=== PATIENT | male | born 1990 | race Two or more races ===

== ENCOUNTER 2016-03-17 08:38 | Inpatient (IN) | payer OTHER ==
[2016-03-17 09:03] VITALS: BMI 17.8
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
[2016-03-17] MEDS ORDERED: ACETAMINOPHEN 325 MG TABLET (FP) PO PRN (11:55)
[2016-03-17] MEDS ORDERED: diphenhydrAMINE HCL 50 MG CAPSULE PO PRN (11:55)
[2016-03-17] MEDS ORDERED: LOPERAMIDE HCL 2 MG CAPSULE PO PRN (11:55)
[2016-03-17] MEDS ORDERED: NICOTINE POLACRILEX 2 MG GUM BUC PRN (11:55)
[2016-03-17] MEDS ORDERED: MENTHOL/PHENOL 1 EACH UD MM PRN (11:55)
[2016-03-17] MEDS ORDERED: MAGNESIUM CITRATE 300 ML BOTTLE PO PRN (11:55)
[2016-03-17] MEDS ORDERED: chlordiazePOXIDE HCL 25 MG CAPSULE PO PRN (11:55)
[2016-03-17] MEDS ORDERED: guaiFENesin/D-METHORPHAN HB 10 ML UNIT-DOSE CUPS PO PRN (11:55)
[2016-03-17] MEDS ORDERED: MAGNESIUM HYDROX 2400MG/30ML ORAL SUSPENSION 30 ML CUP PO PRN (11:55)
[2016-03-17] MEDS ORDERED: MAG HYDROX/AL HYDROX/SIMETH 30 ML UNIT-DOSE CUP PO PRN (11:55)
[2016-03-17] MEDS ORDERED: IBUPROFEN 400 MG TABLET (FP) PO PRN (11:55)
[2016-03-17] MEDS ORDERED: P-EPHED 60MG/TRIPROLIDI 2.5MG TABLET PO PRN (11:55)
[2016-03-17] MEDS ORDERED: hydrOXYzine PAMOATE 25 MG CAPSULE (FP) PO PRN (11:55)
[2016-03-17] MEDS ORDERED: chlordiazePOXIDE HCL 25 MG CAPSULE PO ONE (12:13)
[2016-03-17] MEDS: NICOTINE 14 MG/24 HOURS TOPICAL PATCH TD SCH (12:20)
[2016-03-17 16:14] LABS: HIV 1 & 2 AB NEGATIVE; HIV 1 AGp24 NEGATIVE
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
[2016-03-17] MEDS: chlordiazePOXIDE HCL 25 MG CAPSULE PO SCH ×2 (17:23→22:16)
[2016-03-17 20:35] LABS: URINE APPEARANCE CLEAR; URINE BILIRUBIN NEGATIVE (NEGATIVE); URINE BLOOD NEGATIVE (NEGATIVE); URINE COLOR YELLOW; URINE GLUCOSE (UA) NEGATIVE (NEGATIVE); URINE KETONE 1+ (NEGATIVE); URINE LEUK ESTERASE NEGATIVE (NEGATIVE); URINE NITRITE NEGATIVE (NEGATIVE); URINE PROTEIN NEGATIVE (NEGATIVE); URINE UROBILINOGEN 2.0 E.U/dl E.U./dl (0.2-1.0)
[2016-03-17] MEDS: ZOLPIDEM TARTRATE 5 MG TABLET PO PRN (22:16)
[2016-03-17] MEDS: THIAMINE HCL 100 MG TABLET (FP) PO SCH (22:16)
--- NOTE | 2016-03-17 22:59 | EKG ---
Test Reason : Blood Pressure : / mmHG Vent. Rate : 081 BPM Atrial Rate : 081 BPM P-R Int : 000 ms QRS Dur : 082 ms QT Int : 368 ms P-R-T Axes : 046 078 051 degrees QTc Int : 427 ms POOR DATA QUALITY, INTERPRETATION MAY BE ADVERSELY AFFECTED NORMAL SINUS RHYTHM NORMAL ECG NO PREVIOUS ECGS AVAILABLE Confirmed by SPIKE CARTER, SETH ([id number]) on 03/17/2016 10:59:29 PM Referred By: Gera Romano Confirmed By:SETH LALA MD
[2016-03-18] MEDS: chlordiazePOXIDE HCL 25 MG CAPSULE PO SCH ×4 (05:47→22:45)
[2016-03-18] MEDS ORDERED: ONDANSETRON *ODT* 4 MG TABLET SL PRN (09:27)
[2016-03-18 10:08] LABS: MCH 33.3 pg (25.7-33.7); MCHC 33.9 g/dl (32.0-35.9); MEAN CELL VOLUME 98.3 fl (80-96); MEAN PLT VOLUME 9.1 fl (7.5-11.1); PLATELET COUNT 243 K/MM3 (134-434); RDW 12.8 % (11.9-15.9); WHITE BLOOD COUNT 6.4 K/mm3 (4.0-10.0)
[2016-03-18 10:22] LABS: ALBUMIN 4.3 g/dl (3.4-5.0); ANION GAP 11 (8-16); CALCIUM 9.6 mg/dL (8.5-10.1); CO2 26 mmol/L (21-32); GLUCOSE,RANDOM 123 mg/dL (74-106); SGOT/AST 16 U/L (15-37); SGPT/ALT 20 U/L (12-78)
[2016-03-18 10:24] LABS: ALK PHOS 97 U/L (45-117); CREATININE 1.1 mg/dL (0.7-1.3); TOT PROT 7.2 g/dl (6.4-8.2)
--- NOTE | 2016-03-18 10:32 | PN ---
[facility] CIWA - CIWA Score Nausea/Vomitin-No Nausea/No Vomiting Muscle Tremors: 4-Moderate,w/Arms Extend Anxiety: 4-Mod. Anxious/Guarded Agitation: 4-Moderately Restless Paroxysmal Sweats: 1-Minimal Palms Moist Orientation: 0-Oriented Tacttile Disturbances: 3-Moderate Itch/Numb/Burn Auditory Disturbances: 0-None Visual Disturbances: 0-None Headache: 0-None Present CIWA-Ar Total Score: 16 BHS Progress Note (SOAP) Subjective: ANXIETY,TREMORS,SWEATS,NAUSEA,BACKACHE, INTERMITTENT SLEEP Objective: 03/18/16 10:32 Vital Signs Temperature 96.9 F L 03/18/16 09:26 Pulse Rate 87 03/18/16 09:26 Respiratory Rate 18 03/18/16 09:26 Blood Pressure 102/75 03/18/16 09:26 O2 Sat by Pulse Oximetry (%) Laboratory Last Values WBC 6.4 K/mm3 (4.0-10.0) D 03/18/16 06:00 RBC 4.56 M/mm3 (4.00-5.60) 03/18/16 06:00 Hgb 15.2 GM/dL (11.7-16.9) 03/18/16 06:00 Hct 44.8 % (35.4-49) 03/18/16 06:00 MCV 98.3 fl (80-96) H 03/18/16 06:00 MCHC 33.9 g/dl (32.0-35.9) 03/18/16 06:00 RDW 12.8 % (11.9-15.9) 03/18/16 06:00 Plt Count 243 K/MM3 (134-434) 03/18/16 06:00 MPV 9.1 fl (7.5-11.1) 03/18/16 06:00 Sodium 139 mmol/L (136-145) 03/18/16 06:00 Potassium 4.2 mmol/L (3.5-5.1) 03/18/16 06:00 Chloride 102 mmol/L (98-107) 03/18/16 06:00 Carbon Dioxide 26 mmol/L (21-32) 03/18/16 06:00 Anion Gap 11 (8-16) 03/18/16 06:00 BUN 9 mg/dL (7-18) 03/18/16 06:00 Creatinine 1.1 mg/dL (0.7-1.3) 03/18/16 06:00 Creat Clearance w eGFR > 60 (>60) 03/18/16 06:00 Random Glucose 123 mg/dL (74-106) H D 03/18/16 06:00 Calcium 9.6 mg/dL (8.5-10.1) 03/18/16 06:00 Total Bilirubin 1.0 mg/dL (0.2-1.0) D 03/18/16 06:00 AST 16 U/L (15-37) 03/18/16 06:00 ALT 20 U/L (12-78) D 03/18/16 06:00 Alkaline Phosphatase 97 U/L (45-117) 03/18/16 06:00 Total Protein 7.2 g/dl (6.4-8.2) 03/18/16 06:00 Albumin 4.3 g/dl (3.4-5.0) 03/18/16 06:00 Urine Color Yellow 03/17/16 14:00 Urine Appearance Clear 03/17/16 14:00 Urine pH 6.0 (5.0-8.0) 03/17/16 14:00 Ur Specific [place] 1.014 (1.001-1.035) 03/17/16 14:00 Urine Protein Negative (NEGATIVE) 03/17/16 14:00 Urine Glucose (UA) Negative (NEGATIVE) 03/17/16 14:00 Urine Ketones 1+ (NEGATIVE) H 03/17/16 14:00 Urine Blood Negative (NEGATIVE) 03/17/16 14:00 Urine Nitrite Negative (NEGATIVE) 03/17/16 14:00 Urine Bilirubin Negative (NEGATIVE) 03/17/16 14:00 Urine Urobilinogen 2.0 e.u/dl E.U./dl (0.2-1.0) 03/17/16 14:00 Ur Leukocyte Esterase Negative (NEGATIVE) 03/17/16 14:00 HIV 1&2 Antibody Screen Negative 03/17/16 10:30 HIV P24 Antigen Negative 03/17/16 10:30 Assessment: 03/18/16 10:32 WITHDRAWAL SX Plan: CONTINUE DETOX
[2016-03-18] MEDS: NICOTINE 14 MG/24 HOURS TOPICAL PATCH TD SCH (10:37)
[2016-03-18] MEDS: PRENATAL VITAMINS W/ FOLIC ACID TABLET (FP) PO SCH (10:37)
[2016-03-18] MEDS ORDERED: INFLUENZA VACCINE 45 MCG/0.5 ML (MDV 16-17) IM ONE (12:00)
[2016-03-18] MEDS: ZOLPIDEM TARTRATE 5 MG TABLET PO PRN (22:45)
[2016-03-18] MEDS: THIAMINE HCL 100 MG TABLET (FP) PO SCH (22:45)
[2016-03-19] MEDS: chlordiazePOXIDE HCL 25 MG CAPSULE PO SCH ×2 (05:38→10:36)
[2016-03-19] MEDS: NICOTINE 14 MG/24 HOURS TOPICAL PATCH TD SCH (10:36)
[2016-03-19] MEDS: PRENATAL VITAMINS W/ FOLIC ACID TABLET (FP) PO SCH (10:36)
--- NOTE | 2016-03-19 10:46 | PN ---
S CIWA - CIWA Score Nausea/Vomitin-No Nausea/No Vomiting Muscle Tremors: 4-Moderate,w/Arms Extend Anxiety: 3 Agitation: 3 Paroxysmal Sweats: 3 Orientation: 0-Oriented Tacttile Disturbances: 0-None Auditory Disturbances: 0-None Visual Disturbances: 0-None Headache: 0-None Present CIWA-Ar Total Score: 13 BHS Progress Note (SOAP) Subjective: anxiety,tremors,sweating,interrupted sleep,restless. Objective: 03/19/16 10:45 Vital Signs - 8 hr 03/19/16 03/19/16 03/19/16 03:41 06:26 10:14 Temperature 96 F L 96.3 F L Pulse Rate 88 76 Respiratory 18 16 18 Rate Blood Pressure 107/79 111/76 Laboratory Tests 03/17/16 03/17/16 03/18/16 10:30 14:00 06:00 WBC 6.4 D RBC 4.56 Hgb 15.2 Hct 44.8 MCV 98.3 H MCHC 33.9 RDW 12.8 Plt Count 243 MPV 9.1 Sodium Potassium Chloride Carbon Dioxide Anion Gap BUN Creatinine Creat Clearance w eGFR Random Glucose Calcium Total Bilirubin AST ALT Alkaline Phosphatase Total Protein Albumin Urine Color Yellow Urine Appearance Clear Urine pH 6.0 Ur Specific [place] 1.014 Urine Protein Negative Urine Glucose (UA) Negative Urine Ketones 1+ H Urine Blood Negative Urine Nitrite Negative Urine Bilirubin Negative Urine Urobilinogen 2.0 e.u/dl Ur Leukocyte Esterase Negative RPR Titer HIV 1&2 Antibody Screen Negative HIV P24 Antigen Negative 03/18/16 03/18/16 06:00 06:00 WBC RBC Hgb Hct MCV MCHC RDW Plt Count MPV Sodium 139 Potassium 4.2 Chloride 102 Carbon Dioxide 26 Anion Gap 11 BUN 9 Creatinine 1.1 Creat Clearance w eGFR > 60 Random Glucose 123 H D Calcium 9.6 Total Bilirubin 1.0 D AST 16 ALT 20 D Alkaline Phosphatase 97 Total Protein 7.2 Albumin 4.3 Urine Color Urine Appearance Urine pH Ur Specific [place] Urine Protein Urine Glucose (UA) Urine Ketones Urine Blood Urine Nitrite Urine Bilirubin Urine Urobilinogen Ur Leukocyte Esterase RPR Titer Nonreactive HIV 1&2 Antibody Screen HIV P24 Antigen labs noted Assessment: 03/19/16 10:46 withdrawal sx. Plan: continue detox
[2016-03-19] MEDS: chlordiazePOXIDE 5 MG CAPSULE PO SCH ×2 (16:38→22:37)
[2016-03-19] MEDS: THIAMINE HCL 100 MG TABLET (FP) PO SCH (22:37)
[2016-03-20] MEDS: chlordiazePOXIDE 5 MG CAPSULE PO SCH ×2 (05:57→11:27)
--- NOTE | 2016-03-20 09:08 | PN ---
BHS Progress Note (SOAP) Subjective: no complaints, wants to go today after medication, no shakes, no BRITO, no nausea, no diarrhea, no anxiety, sleeping well Objective: 03/20/16 09:05 Vital Signs - 24 hr 03/19/16 03/19/16 03/19/16 10:14 14:42 17:08 Temperature 96.3 F L 97.1 F L 98.7 F Pulse Rate 76 72 77 Respiratory 18 18 18 Rate Blood Pressure 111/76 118/90 112/73 03/19/16 03/20/16 03/20/16 23:23 03:30 06:46 Temperature 96.3 F L 96.7 F L Pulse Rate 100 H 94 H Respiratory 18 18 18 Rate Blood Pressure 114/74 112/71 Laboratory Tests 03/17/16 03/17/16 03/18/16 10:30 14:00 06:00 WBC 6.4 D RBC 4.56 Hgb 15.2 Hct 44.8 MCV 98.3 H MCHC 33.9 RDW 12.8 Plt Count 243 MPV 9.1 Sodium Potassium Chloride Carbon Dioxide Anion Gap BUN Creatinine Creat Clearance w eGFR Random Glucose Calcium Total Bilirubin AST ALT Alkaline Phosphatase Total Protein Albumin Urine Color Yellow Urine Appearance Clear Urine pH 6.0 Ur Specific [place] 1.014 Urine Protein Negative Urine Glucose (UA) Negative Urine Ketones 1+ H Urine Blood Negative Urine Nitrite Negative Urine Bilirubin Negative Urine Urobilinogen 2.0 e.u/dl Ur Leukocyte Esterase Negative RPR Titer HIV 1&2 Antibody Screen Negative HIV P24 Antigen Negative 03/18/16 03/18/16 06:00 06:00 WBC RBC Hgb Hct MCV MCHC RDW Plt Count MPV Sodium 139 Potassium 4.2 Chloride 102 Carbon Dioxide 26 Anion Gap 11 BUN 9 Creatinine 1.1 Creat Clearance w eGFR > 60 Random Glucose 123 H D Calcium 9.6 Total Bilirubin 1.0 D AST 16 ALT 20 D Alkaline Phosphatase 97 Total Protein 7.2 Albumin 4.3 Urine Color Urine Appearance Urine pH Ur Specific [place] Urine Protein Urine Glucose (UA) Urine Ketones Urine Blood Urine Nitrite Urine Bilirubin Urine Urobilinogen Ur Leukocyte Esterase RPR Titer Nonreactive HIV 1&2 Antibody Screen HIV P24 Antigen macrocytosis, tachycardia, hyperglycemia Assessment: 03/20/16 09:07 withdrawal sx persist Plan: cont detox, if patient decides to leave he must sign out AMA
[2016-03-20] MEDS: PRENATAL VITAMINS W/ FOLIC ACID TABLET (FP) PO SCH (11:28)
[2016-03-20] MEDS: NICOTINE 14 MG/24 HOURS TOPICAL PATCH TD SCH (11:28)
[2016-03-20 15:44] VITALS: BP 106/70; PULSE 92; TEMP 98
--- NOTE | 2016-03-20 16:45 | PN ---
S Progress Note Note: patient would like to leave due to family emergency,stable for discharge,follow up with after care program as arrangement
--- NOTE | 2016-03-20 16:47 | DS ---
[facility] Detox Discharge Summary Admission Date: 03/17/16 Discharge Date: 03/20/16 - History Present History: Alcohol Dependence Additional Comments: patient is stable for discharge today,stated has family emergency,seen by counselor,follow up with after care program as arrangement and pmd for medical problem Pertinent Past History: asthma - Physical Exam Results Vital Signs: Vital Signs Temperature 98 F 03/20/16 15:43 Pulse Rate 92 H 03/20/16 15:43 Respiratory Rate 18 03/20/16 15:43 Blood Pressure 106/70 03/20/16 15:43 O2 Sat by Pulse Oximetry (%) Pertinent Admission Physical Exam Findings: withdrawal symptom - Treatment Hospital Course: Detox Protocol Followed, Detoxed Safely, Responded well, Discharged Condition Good Patient has Accepted a Rehab Referral to: declined - Medication Discharge Medications: Ambulatory Orders Albuterol Sulfate Inhaler - [Ventolin HFA Inhaler -] 2 inh PO Q4H PRN 10/26/13 - AMA Did Patient Leave Against Medical Advice: No
[2016-03-20] MEDS ORDERED: chlordiazePOXIDE HCL 10 MG CAPSULE PO SCH (17:00)
--- NOTE | 2016-03-23 00:29 | EKG ---
Test Reason : Blood Pressure : / mmHG Vent. Rate : 076 BPM Atrial Rate : 076 BPM P-R Int : 118 ms QRS Dur : 078 ms QT Int : 358 ms P-R-T Axes : 036 075 069 degrees QTc Int : 402 ms NORMAL SINUS RHYTHM EARLY REPOLARIZATION NORMAL ECG WHEN COMPARED WITH ECG OF 17-MAR-2016 12:31, NO SIGNIFICANT CHANGE WAS FOUND Confirmed by OCTAVIO DERAS MD ([id number]) on 03/23/2016 12:28:24 AM Referred By: Gera Romano Confirmed By:OCTAVIO DERAS MD
== END 2016-03-20 17:11 | disposition home or self-care (01) | DRG 775 ==
LOC: YASAS 08:38 → Y3N 11:07
PROVIDERS: ADMIT Internal Medicine; ATTEND Internal Medicine
PROC: HZ2ZZZZ Detoxification Services for Substance Abuse Treatment (ICD-10-PCS; principal; 2016-03-20)
DX: F10.230 Alcohol dependence with withdrawal, uncomplicated (principal); F17.210 Nicotine dependence, cigarettes, uncomplicated; F90.9 Attention-deficit hyperactivity disorder, unspecified type; G47.00 Insomnia, unspecified; J45.20 Mild intermittent asthma, uncomplicated
CPT/HCPCS: 36415; 80053; 81003; 85027; 86593; 87389; 93005; 93010

== ENCOUNTER 2018-09-12 16:18 | Inpatient (IN) | payer OTHER ==
[2018-09-12 20:45] VITALS: BMI 16.5
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
[2018-09-12] MEDS ORDERED: METHOCARBAMOL 500 MG TABLET PO PRN (23:10)
[2018-09-12] MEDS ORDERED: MENTHOL/PHENOL 1 EACH UD MM PRN (23:10)
[2018-09-12] MEDS ORDERED: hydrOXYzine PAMOATE 25 MG CAPSULE (FP) PO PRN (23:10)
[2018-09-12] MEDS ORDERED: ACETAMINOPHEN 325 MG TABLET (FP) PO PRN (23:10)
[2018-09-12] MEDS ORDERED: MAGNESIUM HYDROX 2400MG/30ML ORAL SUSPENSION 30 ML CUP PO PRN (23:10)
[2018-09-12] MEDS ORDERED: MAGNESIUM CITRATE 300 ML BOTTLE PO PRN (23:10)
[2018-09-12] MEDS ORDERED: BISMUTH SUBSALICYLATE 524 MG/30 ML UD PO PRN (23:10)
[2018-09-12] MEDS ORDERED: IBUPROFEN 400 MG TABLET (FP) PO PRN (23:10)
[2018-09-12] MEDS ORDERED: MAG HYDROX/AL HYDROX/SIMETH 30 ML UNIT-DOSE CUP PO PRN (23:10)
[2018-09-12] MEDS ORDERED: chlordiazePOXIDE HCL 25 MG CAPSULE PO PRN (23:10)
[2018-09-12] MEDS ORDERED: MELATONIN 5 MG TABLETS PO PRN (23:10)
[2018-09-12] MEDS ORDERED: ALBUTEROL SO4 8 GM HFA INHALER IH PRN (23:12)
[2018-09-13] MEDS: ACETAMINOPHEN 325 MG TABLET (FP) PO PRN ×2 (01:03→10:28)
[2018-09-13] MEDS: chlordiazePOXIDE HCL 25 MG CAPSULE PO SCH ×5 (01:10→22:00)
--- NOTE | 2018-09-13 08:23 | EKG ---
Test Reason : Blood Pressure : / mmHG Vent. Rate : 099 BPM Atrial Rate : 099 BPM P-R Int : 138 ms QRS Dur : 078 ms QT Int : 338 ms P-R-T Axes : 074 086 076 degrees QTc Int : 433 ms NORMAL SINUS RHYTHM NORMAL ECG WHEN COMPARED WITH ECG OF 19-MAR-2016 10:45, NO SIGNIFICANT CHANGE WAS FOUND Confirmed by ANGELICA CREWS MD ([id number]) on 09/13/2018 8:22:40 AM Referred By: Confirmed By:ANGELICA CREWS MD
[2018-09-13 10:27] LABS: HEMATOCRIT 44.6 % (35.4-49); HEMOGLOBIN 15.4 GM/dL (11.7-16.9); MCH 34.1 pg (25.7-33.7); MCHC 34.6 g/dl (32.0-35.9); MEAN CELL VOLUME 98.5 fl (80-96); MEAN PLT VOLUME 8.6 fl (7.5-11.1); PLATELET COUNT 170 K/MM3 (134-434); RBC 4.53 M/mm3 (4.00-5.60); RDW 12.8 % (11.9-15.9); WHITE BLOOD COUNT 2.9 K/mm3 (4.0-10.0)
[2018-09-13 10:38] LABS: BILIRUBIN,TOTAL 0.3 mg/dL (0.2-1); BLOOD UREA NITROGEN 9.7 mg/dL (7-18); CALCIUM 9.3 mg/dL (8.5-10.1); CREATININE 0.7 mg/dL (0.55-1.3); POTASSIUM 3.9 mmol/L (3.5-5.1); TOT PROT 7.1 g/dl (6.4-8.2)
--- NOTE | 2018-09-13 11:38 | CONSULT ---
[facility] Psychiatric Consult - Data Date of interview: 09/13/18 Admission source: [facility] Identifying data: This is one on multiple admissions to [facility] for this 27 y/ o AA male self-referred for detoxification (alcohol). Examined at [address] [place] [address]. Patient is single, no biological children (has a stepchild), domiciled, unemployed and supported on welfare. Substance Abuse History: Confirmed by patient. Details in current [facility] report : Smoking history: Current every day smoker. Have you smoked in the past 12 months: Yes. Aproximately how many cigarettes per day: 4. Cigars Per Day: 0. Hx Chewing Tobacco Use: No. Initiated information on smoking cessation: Yes. ' Breaking Loose' booklet given: 09/12/18. - Substance & Tx. History. Hx Alcohol Use: Yes. Hx Substance Use: No. Substance Use Type: Alcohol. Hx Substance Use Treatment: Yes ([facility]). - Substances abused. Alcohol. Substance route: Oral. Frequency: Daily. Amount used: 1 liter a day of vodka. Age of first use: 11. Date of last use: 09/12/18 Medical History: Bronchial asthma. Psychiatric History: Patient denies history of psychiatric hospitalizations, [facility]PD care of suicide attempts. Physical/Sexual Abuse/Trauma History: Patient denies. Additional Comment: Drug screen is negative. Mental Status Exam - Mental Status Exam Alert and Oriented to: Time, Place, Person Cognitive Function: Good Patient Appearance: Well Groomed Mood: Nervous, Withdrawn, Anxious Affect: Appropriate, Normal Range Patient Behavior: Fatigued, Cooperative Speech Pattern: Clear, Appropriate Voice Loudness: Normal Thought Process: Intact, Goal Oriented Thought Disorder: Not Present Hallucinations: Denies Suicidal Ideation: Denies Homicidal Ideation: Denies Insight/Judgement: Poor Sleep: Well Appetite: Good Muscle strength/Tone: Normal Gait/Station: Normal Psychiatric Findings - Problem List ([place] 1, 2,3) (1) Alcohol dependence with uncomplicated withdrawal Current Visit: Yes Status: Acute (2) Nicotine dependence Current Visit: Yes Status: Chronic Qualifiers: Nicotine product type: cigarettes Substance use status: uncomplicated Qualified Code(s): F17.210 - Nicotine dependence, cigarettes, uncomplicated - Initial Treatment Plan Initial Treatment Plan: Psychoeducation. Sleep hygiene. Detoxification. Relapse prevention (MAT) measures are discussed with the patient. AA meetings. Observation.
[2018-09-13] MEDS: PRENATAL VITAMINS W/ FOLIC ACID TABLET (FP) PO SCH (12:11)
--- NOTE | 2018-09-13 12:34 | PN ---
S CIWA - CIWA Score Nausea/Vomitin-Mild Nausea/No Vomiting Muscle Tremors: 3 Anxiety: 3 Agitation: 3 Paroxysmal Sweats: 1-Minimal Palms Moist Orientation: 0-Oriented Tacttile Disturbances: 2-Mild Itch/Numbness/Burn Auditory Disturbances: 0-None Visual Disturbances: 0-None Headache: 0-None Present CIWA-Ar Total Score: 13 BHS Progress Note (SOAP) Subjective: 27 years old male admitted on 09/12/18 for acute alcohol withdrawal sx management report mosquido bits on arms and legs itchy redness multiple sizes round raised bits ho noted calamin lotion Objective: 09/13/18 12:33 Vital Signs Temperature 96.5 F L 09/13/18 09:29 Pulse Rate 102 H 09/13/18 09:29 Respiratory Rate 18 09/13/18 09:29 Blood Pressure 116/75 09/13/18 09:29 O2 Sat by Pulse Oximetry (%) Laboratory Last Values WBC 2.9 K/mm3 (4.0-10.0) L 09/13/18 07:30 RBC 4.53 M/mm3 (4.00-5.60) 09/13/18 07:30 Hgb 15.4 GM/dL (11.7-16.9) 09/13/18 07:30 Hct 44.6 % (35.4-49) 09/13/18 07:30 MCV 98.5 fl (80-96) H 09/13/18 07:30 MCH 34.1 pg (25.7-33.7) H 09/13/18 07:30 MCHC 34.6 g/dl (32.0-35.9) 09/13/18 07:30 RDW 12.8 % (11.9-15.9) 09/13/18 07:30 Plt Count 170 K/MM3 (134-434) D 09/13/18 07:30 MPV 8.6 fl (7.5-11.1) 09/13/18 07:30 Sodium 136 mmol/L (136-145) 09/13/18 07:30 Potassium 3.9 mmol/L (3.5-5.1) 09/13/18 07:30 Chloride 101 mmol/L (98-107) 09/13/18 07:30 Carbon Dioxide 26 mmol/L (21-32) 09/13/18 07:30 Anion Gap 9 MMOL/L (8-16) 09/13/18 07:30 BUN 9.7 mg/dL (7-18) 09/13/18 07:30 Creatinine 0.7 mg/dL (0.55-1.3) 09/13/18 07:30 Est GFR (CKD-EPI)AfAm 147.81 09/13/18 07:30 Est GFR (CKD-EPI)NonAf 127.53 09/13/18 07:30 Random Glucose 67 mg/dL (74-106) L 09/13/18 07:30 Calcium 9.3 mg/dL (8.5-10.1) 09/13/18 07:30 Total Bilirubin 0.3 mg/dL (0.2-1) 09/13/18 07:30 AST 39 U/L (15-37) H 09/13/18 07:30 ALT 34 U/L (13-61) 09/13/18 07:30 Alkaline Phosphatase 97 U/L (45-117) 09/13/18 07:30 Total Protein 7.1 g/dl (6.4-8.2) 09/13/18 07:30 Albumin 4.0 g/dl (3.4-5.0) 09/13/18 07:30 RPR Titer Nonreactive (NONREACTIVE) 09/13/18 07:30 lab noted Assessment: 09/13/18 12:33 alcohol withdrawal sx Plan: continue alcohol detox
[2018-09-13] MEDS: CALAMINE 8% TOPICAL LOTION 177 ML BOTTLE TP SCH ×3 (16:03→22:01)
[2018-09-13] MEDS ORDERED: MONTELUKAST NA 10 MG TABLET PO SCH (22:00)
[2018-09-13] MEDS ORDERED: THIAMINE HCL 100 MG TABLET (FP) PO SCH (22:00)
[2018-09-14] MEDS: chlordiazePOXIDE HCL 25 MG CAPSULE PO SCH ×2 (05:46→10:34)
[2018-09-14] MEDS ORDERED: ALBUTEROL SO4 0.042% IH SOL 1.25 MG/3 ML VIAL.NEB NEB PRN (08:32)
[2018-09-14] MEDS ORDERED: ALBUTEROL SO4 0.083% IH SOL 2.5 MG/3 ML VIAL.NEB. NEB PRN (08:47)
--- NOTE | 2018-09-14 10:14 | PN ---
S CIWA - CIWA Score Nausea/Vomitin-Mild Nausea/No Vomiting Muscle Tremors: 3 Anxiety: 1-Mildly Anxious Agitation: 2 Paroxysmal Sweats: 1-Minimal Palms Moist Orientation: 0-Oriented Tacttile Disturbances: 1-Very Mild Itch/Numbness Auditory Disturbances: 0-None Visual Disturbances: 0-None Headache: 0-None Present CIWA-Ar Total Score: 9 BHS Progress Note (SOAP) Subjective: resting on bed prefers sleepy hesitate to discuss aftercare with staff long history of asthma encourage ventolin prn addition nebulizer prn Objective: 09/14/18 10:13 Vital Signs Temperature 97.8 F 09/14/18 09:37 Pulse Rate 97 H 09/14/18 09:37 Respiratory Rate 17 09/14/18 09:37 Blood Pressure 103/64 09/14/18 09:37 O2 Sat by Pulse Oximetry (%) Laboratory Last Values WBC 2.9 K/mm3 (4.0-10.0) L 09/13/18 07:30 RBC 4.53 M/mm3 (4.00-5.60) 09/13/18 07:30 Hgb 15.4 GM/dL (11.7-16.9) 09/13/18 07:30 Hct 44.6 % (35.4-49) 09/13/18 07:30 MCV 98.5 fl (80-96) H 09/13/18 07:30 MCH 34.1 pg (25.7-33.7) H 09/13/18 07:30 MCHC 34.6 g/dl (32.0-35.9) 09/13/18 07:30 RDW 12.8 % (11.9-15.9) 09/13/18 07:30 Plt Count 170 K/MM3 (134-434) D 09/13/18 07:30 MPV 8.6 fl (7.5-11.1) 09/13/18 07:30 Sodium 136 mmol/L (136-145) 09/13/18 07:30 Potassium 3.9 mmol/L (3.5-5.1) 09/13/18 07:30 Chloride 101 mmol/L (98-107) 09/13/18 07:30 Carbon Dioxide 26 mmol/L (21-32) 09/13/18 07:30 Anion Gap 9 MMOL/L (8-16) 09/13/18 07:30 BUN 9.7 mg/dL (7-18) 09/13/18 07:30 Creatinine 0.7 mg/dL (0.55-1.3) 09/13/18 07:30 Est GFR (CKD-EPI)AfAm 147.81 09/13/18 07:30 Est GFR (CKD-EPI)NonAf 127.53 09/13/18 07:30 Random Glucose 67 mg/dL (74-106) L 09/13/18 07:30 Calcium 9.3 mg/dL (8.5-10.1) 09/13/18 07:30 Total Bilirubin 0.3 mg/dL (0.2-1) 09/13/18 07:30 AST 39 U/L (15-37) H 09/13/18 07:30 ALT 34 U/L (13-61) 09/13/18 07:30 Alkaline Phosphatase 97 U/L (45-117) 09/13/18 07:30 Total Protein 7.1 g/dl (6.4-8.2) 09/13/18 07:30 Albumin 4.0 g/dl (3.4-5.0) 09/13/18 07:30 RPR Titer Nonreactive (NONREACTIVE) 09/13/18 07:30 lab noted low wbc repeat cbc 09/14/18 10:19 Assessment: 09/14/18 10:20 alcohol withdrawal sx Plan: continue alcohol detox
[2018-09-14] MEDS: PRENATAL VITAMINS W/ FOLIC ACID TABLET (FP) PO SCH (10:33)
[2018-09-14] MEDS: CALAMINE 8% TOPICAL LOTION 177 ML BOTTLE TP SCH (10:33)
[2018-09-14 13:33] VITALS: BP 110/86; PULSE 108; TEMP 97
--- NOTE | 2018-09-14 15:18 | DS ---
[facility] Detox Discharge Summary Admission Date: 09/12/18 Discharge Date: 09/14/18 - History Present History: Alcohol Dependence Additional Comments: 27 years old male admitted on 09/12/18 for acute alcohol withdrawal sx management insists to leave the unit that he is feeling better today prefers to begin alcohol recovery today at [facility] alert oriented x 3 denies dizziness no shortness of breath speech clearly steady gait - Physical Exam Results Vital Signs: Vital Signs Temperature 97.0 F L 09/14/18 13:32 Pulse Rate 108 H 09/14/18 13:32 Respiratory Rate 18 09/14/18 13:32 Blood Pressure 110/86 09/14/18 13:32 O2 Sat by Pulse Oximetry (%) Pertinent Admission Physical Exam Findings: alcohol withdrawal sx Laboratory Last Values WBC 2.9 K/mm3 (4.0-10.0) L 09/13/18 07:30 RBC 4.53 M/mm3 (4.00-5.60) 09/13/18 07:30 Hgb 15.4 GM/dL (11.7-16.9) 09/13/18 07:30 Hct 44.6 % (35.4-49) 09/13/18 07:30 MCV 98.5 fl (80-96) H 09/13/18 07:30 MCH 34.1 pg (25.7-33.7) H 09/13/18 07:30 MCHC 34.6 g/dl (32.0-35.9) 09/13/18 07:30 RDW 12.8 % (11.9-15.9) 09/13/18 07:30 Plt Count 170 K/MM3 (134-434) D 09/13/18 07:30 MPV 8.6 fl (7.5-11.1) 09/13/18 07:30 Sodium 136 mmol/L (136-145) 09/13/18 07:30 Potassium 3.9 mmol/L (3.5-5.1) 09/13/18 07:30 Chloride 101 mmol/L (98-107) 09/13/18 07:30 Carbon Dioxide 26 mmol/L (21-32) 09/13/18 07:30 Anion Gap 9 MMOL/L (8-16) 09/13/18 07:30 BUN 9.7 mg/dL (7-18) 09/13/18 07:30 Creatinine 0.7 mg/dL (0.55-1.3) 09/13/18 07:30 Est GFR (CKD-EPI)AfAm 147.81 09/13/18 07:30 Est GFR (CKD-EPI)NonAf 127.53 09/13/18 07:30 Random Glucose 67 mg/dL (74-106) L 09/13/18 07:30 Calcium 9.3 mg/dL (8.5-10.1) 09/13/18 07:30 Total Bilirubin 0.3 mg/dL (0.2-1) 09/13/18 07:30 AST 39 U/L (15-37) H 09/13/18 07:30 ALT 34 U/L (13-61) 09/13/18 07:30 Alkaline Phosphatase 97 U/L (45-117) 09/13/18 07:30 Total Protein 7.1 g/dl (6.4-8.2) 09/13/18 07:30 Albumin 4.0 g/dl (3.4-5.0) 09/13/18 07:30 RPR Titer Nonreactive (NONREACTIVE) 09/13/18 07:30 lab noted patient agrees to bring [facility] lab [facility] - Treatment Hospital Course: Detox Protocol Followed, Responded well Patient has Accepted a Rehab Referral to: [facility] - Medication Discharge Medications: Ambulatory Orders Albuterol Sulfate Inhaler - [Ventolin HFA Inhaler -] 2 inh PO Q4H PRN 10/26/13 - Diagnosis (1) Nicotine dependence Current Visit: Yes Status: Acute Qualifiers: Nicotine product type: cigarettes Substance use status: in withdrawal Qualified Code(s): F17.213 - Nicotine dependence, cigarettes, with withdrawal (2) Alcohol dependence with uncomplicated withdrawal Current Visit: Yes Status: Acute - AMA Did Patient Leave Against Medical Advice: Yes
[2018-09-15] MEDS ORDERED: chlordiazePOXIDE HCL 10 MG CAPSULE PO PRN
[2018-09-15] MEDS ORDERED: chlordiazePOXIDE HCL 10 MG CAPSULE PO SCH (05:00)
[2018-09-16] MEDS ORDERED: chlordiazePOXIDE HCL 10 MG CAPSULE PO SCH (05:00)
[2018-09-17] MEDS ORDERED: chlordiazePOXIDE HCL 10 MG CAPSULE PO ONE (05:00)
== END 2018-09-14 14:11 | disposition left against medical advice (07) | DRG 770 ==
LOC: YASAS 16:18 → Y3N 23:45
PROVIDERS: ADMIT Surgery; ATTEND Surgery
PROC: HZ2ZZZZ Detoxification Services for Substance Abuse Treatment (ICD-10-PCS; principal; 2018-09-12)
DX: F10.230 Alcohol dependence with withdrawal, uncomplicated (principal); F17.213 Nicotine dependence, cigarettes, with withdrawal; Z87.09 Personal history of other diseases of the respiratory system; Z86.59 Personal history of other mental and behavioral disorders
CPT/HCPCS: 36415; 80053; 85027; 86593; 93005; 93010; 94640

== ENCOUNTER 2022-07-23 17:40 | Inpatient (IN) | payer OTHER ==
[2022-07-23 20:19] VITALS: BMI 18.1
[2022-07-23] MEDS ORDERED: ALBUTEROL SO4 HFA INHALER IH PRN (21:18)
[2022-07-23] MEDS ORDERED: METHOCARBAMOL 500 MG TABLET PO PRN (21:35)
[2022-07-23] MEDS ORDERED: ACETAMINOPHEN 325 MG TABLET (FP) PO PRN (21:35)
[2022-07-23] MEDS ORDERED: DICYCLOMINE HCL 10 MG CAPSULE PO PRN (21:35)
[2022-07-23] MEDS ORDERED: guaiFENesin 600 MG TABLET.ER (FP) PO PRN (21:35)
[2022-07-23] MEDS ORDERED: NALOXONE HCL 0.4 MG/ML VIAL IM PRN (21:35)
[2022-07-23] MEDS ORDERED: NICOTINE POLACRILEX 2 MG GUM BUC PRN (21:35)
[2022-07-23] MEDS ORDERED: MELATONIN 5 MG TABLETS PO PRN (21:35)
[2022-07-23] MEDS ORDERED: BISMUTH SUBSALICYLATE 524 MG/30 ML PO PRN (21:35)
[2022-07-23] MEDS ORDERED: hydrOXYzine PAMOATE 25 MG CAPSULE (FP) PO PRN (21:35)
[2022-07-23] MEDS ORDERED: ONDANSETRON *ODT* 4 MG TABLET SL PRN (21:35)
[2022-07-23] MEDS ORDERED: POLYETHYLENE GLYCOL (HEALTHYLAX) 3350 17 GM PACKET PO PRN (21:35)
[2022-07-23] MEDS ORDERED: LOPERAMIDE HCL 2 MG CAPSULE PO PRN (21:35)
[2022-07-23] MEDS ORDERED: P-EPHED 60MG/TRIPROLIDI 2.5MG TABLET PO PRN (21:35)
[2022-07-23] MEDS ORDERED: MAGNESIUM HYDROX 2400MG/30ML ORAL SUSPENSION 30 ML CUP PO PRN (21:35)
[2022-07-23] MEDS ORDERED: NALOXONE HCL (KLOXXADO) 8 MG SPRAY NS PRN (21:35)
[2022-07-23] MEDS ORDERED: IBUPROFEN 400 MG TABLET (FP) PO PRN (21:35)
[2022-07-23] MEDS ORDERED: IBUPROFEN 600 MG TABLET (FP) PO PRN (21:35)
[2022-07-23] MEDS ORDERED: MAG HYDROX/AL HYDROX/SIMETH 30 ML UNIT-DOSE CUP PO PRN (21:35)
[2022-07-23] MEDS ORDERED: BENZONATATE 200 MG CAPSULE PO PRN (21:35)
[2022-07-23] MEDS ORDERED: BENZOCAINE/MENTHOL (CHLORASEPTIC ) LOZENGE MM PRN (21:35)
[2022-07-23] MEDS ORDERED: chlordiazePOXIDE HCL 25 MG CAPSULE PO PRN (21:37)
[2022-07-23] MEDS ORDERED: chlordiazePOXIDE HCL 25 MG CAPSULE ONE (22:41)
[2022-07-23] MEDS: chlordiazePOXIDE HCL 25 MG CAPSULE PO SCH (22:43)
[2022-07-23] MEDS: THIAMINE HCL 100 MG TABLET (FP) PO SCH (23:02)
[2022-07-24] MEDS: chlordiazePOXIDE HCL 25 MG CAPSULE PO SCH ×4 (05:36→22:08)
[2022-07-24 09:43] LABS: POTASSIUM 4.2 mmol/L (3.5-5.1)
[2022-07-24 09:50] LABS: CALCIUM 9.3 mg/dL (8.5-10.1)
[2022-07-24 09:52] LABS: ALBUMIN 3.5 g/dl (3.4-5.0); BLOOD UREA NITROGEN 7.7 mg/dL (7-18)
[2022-07-24 09:55] LABS: CREATININE 0.8 mg/dL (0.55-1.3)
[2022-07-24 09:57] LABS: BILIRUBIN,TOTAL 0.2 mg/dL (0.2-1); TOT PROT 6.6 g/dl (6.4-8.2)
[2022-07-24 10:06] LABS: HEMATOCRIT 41.3 % (35.4-49); HEMOGLOBIN 14.1 GM/dL (11.7-16.9); MCH 32.4 pg (25.7-33.7); MCHC 34.2 g/dl (32.0-35.9); MEAN CELL VOLUME 94.7 fl (80-96); MEAN PLT VOLUME 8.5 fl (7.5-11.1); PLATELET COUNT 190 10^3/uL (134-434); RBC 4.36 M/mm3 (4.00-5.60); RDW 11.7 % (11.9-15.9); WHITE BLOOD COUNT 3.6 K/mm3 (4.0-10.0)
[2022-07-24] MEDS: PRENATAL VITAMINS W/ FOLIC ACID TABLET (FP) PO SCH (10:49)
[2022-07-24] MEDS ORDERED: SUVOREXANT 10 MG TABLET PO PRN (22:00)
[2022-07-24] MEDS: THIAMINE HCL 100 MG TABLET (FP) PO SCH (22:08)
[2022-07-25] MEDS: chlordiazePOXIDE HCL 25 MG CAPSULE PO SCH ×2 (05:59→10:05)
[2022-07-25] MEDS: NICOTINE 10 MG CARTRIDGE (INHALER) IH PRN ×2 (08:43→14:51)
[2022-07-25] MEDS: PRENATAL VITAMINS W/ FOLIC ACID TABLET (FP) PO SCH (10:04)
[2022-07-25 13:46] VITALS: BP 119/79; PULSE 96; RESP 16; TEMP 96.8
[2022-07-26] MEDS ORDERED: chlordiazePOXIDE HCL 10 MG CAPSULE PO PRN
[2022-07-26] MEDS ORDERED: chlordiazePOXIDE HCL 10 MG CAPSULE PO SCH (05:00)
[2022-07-27] MEDS ORDERED: chlordiazePOXIDE HCL 10 MG CAPSULE PO SCH (05:00)
[2022-07-28] MEDS ORDERED: chlordiazePOXIDE HCL 10 MG CAPSULE PO ONE (05:00)
== END 2022-07-25 17:15 | disposition left against medical advice (07) | DRG 770 ==
LOC: YASAS 17:40 → Y3N 22:09
PROVIDERS: ADMIT Allergy & Immunology; ATTEND Surgery
PROC: HZ2ZZZZ Detoxification Services for Substance Abuse Treatment (ICD-10-PCS; principal; 2022-07-23)
DX: F10.230 Alcohol dependence with withdrawal, uncomplicated (principal); F17.210 Nicotine dependence, cigarettes, uncomplicated; G47.00 Insomnia, unspecified; J45.20 Mild intermittent asthma, uncomplicated; R63.4 Abnormal weight loss; Z68.1 Body mass index [BMI] 19.9 or less, adult; Z88.0 Allergy status to penicillin
CPT/HCPCS: 36415; 80053; 85027; 86780; 87635